=== PATIENT | female | born 1955 | race Caucasian/White ===

== ENCOUNTER 2016-12-17 14:58 | Inpatient (IN) | payer OTHER ==
[~2016-12-17] VITALS: Ht 142.2 cm; Wt 62.7 kg
[2016-12-17] MEDS ORDERED: IV NORMAL SALINE 500 ML BAG IV ONE (15:15)
[2016-12-17] MEDS ORDERED: ONDANSETRON 4 MG/2 ML VIAL IV ONE (15:15)
[2016-12-17] MEDS ORDERED: ONDANSETRON 4 MG/2 ML VIAL ONE (15:24)
[2016-12-17 15:37] LABS: BASOPHILS % (AUTO) 0.3 % (0.0-2.0); EOSINOPHILS # (AUTO) 0.1 K/uL (0.0-0.7); EOSINOPHILS % (AUTO) 0.4 % (0.0-7.0); HEMOGLOBIN 14.3 G/DL (12.0-16.0); LYMPHOCYTES # (AUTO) 1.9 K/UL (0.8-4.8); LYMPHOCYTES % (AUTO) 13.8 % (20.5-51.5); MEAN CORPUSCULAR HEMOGLOBIN 30.2 UUG (27.0-31.0); MEAN CORPUSCULAR HGB CONC 34 g/dL (32.0-37.0); MEAN CORPUSCULAR VOLUME 88.8 FL (81.0-99.0); MONOCYTES % (AUTO) 7.1 % (0.0-11.0); NEUTROPHILS # (AUTO) 10.6 K/UL (1.8-8.9); NEUTROPHILS % (AUTO) 78.4 % (38.5-71.5); PLATELET COUNT (AUTO) 220 K/UL (150-450); RED BLOOD CELL COUNT(AUTO) 4.73 MIL/UL (4.2-5.4); WHITE BLOOD COUNT (AUTO) 13.6 K/UL (4.0-11.2)
[2016-12-17 15:42] LABS: POTASSIUM 3.4 mmol/L (3.5-5.1)
[2016-12-17 15:48] LABS: BILIRUBIN,DIRECT 0.3 mg/dL (0.0-0.2); BILIRUBIN,TOTAL 1.2 mg/dL (0.2-1.0); TOTAL PROTEIN, SERUM 8.6 g/dL (6.4-8.2)
[2016-12-17] MEDS ORDERED: PIPERACILLIN SODIUM/TAZOBACTAM 3.375 G in IV DEXTROSE 5% 50 ML IV ONE (17:30)
[2016-12-17] MEDS ORDERED: PIPERACILLIN SODIUM/TAZO 3.375 GM VIAL ONE (17:53)
--- NOTE | 2016-12-17 17:53 | NUR ---
REPORT GIVEN TO MARA VERMA AWARE OF PT'S CONDITION. WILL CONTINUE FURTHER PLAN OF CARE
[2016-12-17] MEDS ORDERED: IV NORMAL SALINE 1000 ML BAG IV ONE (18:00)
[2016-12-17] MEDS ORDERED: MORPHINE SULFATE 2 MG/1 ML DISP.SYRIN IV ONE (18:00)
[2016-12-17] MEDS ORDERED: MORPHINE SULFATE 4 MG/1 ML DISP.SYRIN ONE (18:08)
[2016-12-17 18:47] VITALS: BP 103/65
--- NOTE | 2016-12-17 19:24 | NUR ---
Patient received from the ER in safe condition. No s/s of distress noted. Farsi speaking, talked to son and gave me some information. Report given to LUCI Ortiz.
--- NOTE | 2016-12-17 19:30 | NUR ---
RECEIVED PT IN BED, AWAKE, COMFORTABLE. PT DENIES PAIN. V/S STABLE. NO S/S OF ACUTE DISTRESS. SAFETY OBSERVED. CALLED DOCTOR VINEET FOR ADMITTING ORDERS.
[2016-12-17 20:20] VITALS: BP 92/53
[2016-12-17] MEDS ORDERED: ACETAMINOPHEN 325 MG TABLET PO PRN (20:45)
[2016-12-17] MEDS ORDERED: Z GUARD REMEDY PASTE 57 GM TUBE TOP PRN (20:45)
[2016-12-17] MEDS ORDERED: ONDANSETRON 4 MG/2 ML VIAL IV PRN (20:45)
[2016-12-17] MEDS ORDERED: MORPHINE SULFATE 2 MG/1 ML DISP.SYRIN IV PRN (20:45)
[2016-12-17] MEDS ORDERED: ZOLPIDEM 5 MG TABLET PO PRN (20:45)
[2016-12-17] MEDS: IV D5 1/2 NS 1000 ML 1,000 ML IV PRN (20:55)
[2016-12-18] MEDS: PIPERACILLIN/TAZOBACTAM/D5W 3.375 G in PREMIXED 1 EACH IV SCH ×3 (02:02→18:27)
--- NOTE | 2016-12-18 06:20 | NUR ---
END OF SHIFT NOTES: PT ASLEEP INTERMITTENTLY THROUGHOUT SHIFT. V.S STABLE. NO S/S OF ACUTE DISTRESS. NO COMPLAINTS OF PAIN. AMBULATORY. PT NPO FOR PROCEDURE IN AM. IVF INFUSING. CALL LIGHT WITHIN REACH. SAFETY AND COMFORT MAINTAINED.
[2016-12-18 06:28] VITALS: BP 98/57
[2016-12-18 07:15] LABS: BILIRUBIN,TOTAL 1.8 mg/dL (0.2-1.0); CREATININE 0.8 mg/dL (0.6-1.3); MAGNESIUM 1.9 mg/dL (1.8-2.4); PHOSPHOROUS 2.9 mg/dL (2.5-4.9); POTASSIUM 3.4 mmol/L (3.5-5.1); TOTAL PROTEIN, SERUM 6.7 g/dL (6.4-8.2)
[2016-12-18 07:25] LABS: THYROID STIMULATING HORMONE 0.344 mIU/mL (0.358-3.740)
[2016-12-18 07:26] LABS: BASOPHILS % (AUTO) 0.4 % (0.0-2.0); EOSINOPHILS # (AUTO) 0.2 K/uL (0.0-0.7); EOSINOPHILS % (AUTO) 1.4 % (0.0-7.0); LYMPHOCYTES # (AUTO) 2.3 K/UL (0.8-4.8); LYMPHOCYTES % (AUTO) 19.4 % (20.5-51.5); MEAN CORPUSCULAR HEMOGLOBIN 31.3 UUG (27.0-31.0); MEAN CORPUSCULAR HGB CONC 35 g/dL (32.0-37.0); MEAN CORPUSCULAR VOLUME 89.4 FL (81.0-99.0); MONOCYTES # (AUTO) 1.2 K/UL (0.1-1.30); MONOCYTES % (AUTO) 9.6 % (0.0-11.0); NEUTROPHILS # (AUTO) 8.4 K/UL (1.8-8.9); NEUTROPHILS % (AUTO) 69.2 % (38.5-71.5); WHITE BLOOD COUNT (AUTO) 12.1 K/UL (4.0-11.2)
[2016-12-18 07:28] LABS: HEMOGLOBIN 11.6 G/DL (12.0-16.0); RED BLOOD CELL COUNT(AUTO) 3.72 MIL/UL (4.2-5.4)
[2016-12-18 07:29] LABS: HEMATOCRIT 33.3 % (37-47); PLATELET COUNT (AUTO) 169 K/UL (150-450)
[2016-12-18] MEDS ORDERED: POTASSIUM CHLORIDE 20 MEQ TAB.PRT.SR PO ONE (07:30)
[2016-12-18] MEDS ORDERED: BARIUM SULFATE 450 ML ORAL.SUSP ONE (09:10)
[2016-12-18] MEDS ORDERED: DIATR MEGLU/DIATRIZOATE SODIUM 30 ML SOLUTION ONE (09:22)
[2016-12-18] MEDS ORDERED: IOHEXOL 300MG/ML 100 ML INFUS..BTL ONE (09:29)
[2016-12-18] MEDS ORDERED: IV NORMAL SALINE 250 ML IV ONE (09:30)
--- NOTE | 2016-12-18 10:37 | NUR ---
PATIENT WAS TAKEN TO CT SCANT W/ CONTRAST ORDERED BY WENDY LOWRY. CONSENT SIGNED, PROCEDURE WAS EXPLAINED TO DAUGHTER. NO S/S OF DISTRESS NOTED. DENIED PAIN AT THE MOMENT, TWO BOWEL MOVEMENT IN THIS MORNING. WILL CONTINUE MONITORING.
[2016-12-18 12:02] VITALS: BP 98/54
[2016-12-18 15:33] VITALS: BP 97/45
--- NOTE | 2016-12-18 18:15 | NUR ---
PATIENT IN BED AWAKE DURING THE DAY. NO S/S OF DISTRESS NOTED. NO C/O OF PAIN. FAMILY MEMBERS CAME TO VISIT AND BROUGHT SOME COMFORT FOOD FOR THE PATIENT. GOOD APPETITE, NO N/V. SAFETY AND COMFORT PROVIDED DURING BY THE STAFF. WILL CONTINUE MONITORING.
[2016-12-18] MEDS: IV D5 1/2 NS 1000 ML 1,000 ML IV PRN (18:27)
[2016-12-18 19:00] VITALS: BP 90/50
--- NOTE | 2016-12-18 20:00 | NUR ---
RECEIVED PATIENT AWAKE IN BED. A/O X4. FARSI SPEAKING. ABLE TO MAKE NEEDS NEEDS KNOWN. IVF INFUSING WELL. VSS. C/O MILD DISCOMFORT IN ABDOMEN. NO RESP. DISTRESS NOTED. CALL LIGHT IN REACH. ALL NEEDS ATTENDED. WILL CONTINUE TO MONITOR.
--- NOTE | 2016-12-18 20:45 | NUR ---
PATIENT C/O PAIN IN ABDOMEN. PATIENT GIVEN MORPHINE 2MG IV AND ZOFRAN 4MG IV PRN PER BODY SHOP SUPERVISOR. ALL NEEDS ATTENDED. WILL CONTINUE TO MONITOR.
--- NOTE | 2016-12-18 22:00 | NUR ---
PATIENT ASLEEP. NO S/S OF PAIN OR DISCOMFORT. NO RESP. DISTRESS NOTED. CALL LIGHT IN REACH. ALL NEEDS ATTENDED.
[2016-12-19] MEDS: PIPERACILLIN/TAZOBACTAM/D5W 3.375 G in PREMIXED 1 EACH IV SCH ×2 (01:50→09:01)
[2016-12-19 04:00] VITALS: BP 90/44
--- NOTE | 2016-12-19 06:34 | NUR ---
PATIENT AWAKE IN BED. SLEPT WELL THROUGHOUT THE NIGHT. IVF INFUSING WELL. DENIES PAIN OR DISCOMFORT. ALL NEEDS ATTENDED. WILL CONTINUE TO MONITOR .
[2016-12-19 09:29] VITALS: BP 96/70
[2016-12-19 11:36] VITALS: BP 100/64
[2016-12-19] MEDS ORDERED: LEVO500T15 PO (12:03)
[2016-12-19 15:12] VITALS: BP 111/51
--- NOTE | 2016-12-19 17:00 | NUR ---
Discharge instructions given to pt with floor renovator #[id number] Ju[place]o. Pt alert and oriented x 4. Instructed pt to f/u with PMD within 1 week and continue ABX, e-prescribed by DR BALDERAS to her pharmacy [facility] [id number] [phone], for 5 more days. Pt verbalized understanding. Pt is to f/u with her PMD re: vaccinations for PNM - pt would rather receive her pnm vaccine somewhere else and not sure if she already had it or not - pt verbalized understanding. Awaiting for SON to apple picker patient. 1730 Pt in a hurry to leave and refused to have education re abx that was prescribed. IV d/c no infiltration noted. Pt d/c with son ambulated to their car. Pt and son verbalized understanding of d/c instructions.
== END 2016-12-19 18:00 | disposition home or self-care (01) | DRG 247 ==
LOC: ER 15:01 → MED 18:35
PROVIDERS: ADMIT Nurse Practitioner Acute Care; ATTEND Nurse Practitioner Acute Care
DX: K31.5 Obstruction of duodenum (principal); A04.9 Bacterial intestinal infection, unspecified; E86.0 Dehydration; E80.6 Other disorders of bilirubin metabolism; K44.0 Diaphragmatic hernia with obstruction, without gangrene
CPT/HCPCS: 36415; 70030-TC; 74000; 83605; 83690; 83735; 84100; 84443; 85025; 85730; 87040; 93005; J2270; J2405; J2543; J3490; J7030; J7040; J7050; Q9951; Q9963; Q9967

== ENCOUNTER 2018-01-28 15:02 | Emergency (ER) | payer OTHER ==
[~2018-01-28] VITALS: Ht 160 cm; Wt 81.6 kg
[~2018-01-28 15:02] MED LIST: LEVO500T2 PO
--- NOTE | 2018-01-28 15:55 | NUR ---
pending MD evaluation, MOISE
--- NOTE | 2018-01-28 16:17 | NUR ---
Dr Villasenor is at bedside
--- NOTE | 2018-01-28 16:23 | NUR ---
Patient refused any diagnostic tests, MD aware
--- NOTE | 2018-01-28 16:25 | NUR ---
Patient discharged to home in stable conditon. Written and verbal after care instructions given to patient and to patient's adult daughter (Sinhala-speaking). Patient and family verbalized understanding of instructions.
== END 2018-01-28 16:26 | disposition home or self-care (01) ==
LOC: ER 15:04
DX: M79.1 Myalgia (principal); Z79.2 Long term (current) use of antibiotics
CPT/HCPCS: A4663

== ENCOUNTER 2019-02-28 21:11 | Emergency (ER) | payer OTHER ==
[~2019-02-28] VITALS: Ht 160 cm; Wt 81.6 kg
--- NOTE | 2019-02-28 21:37 | NUR ---
Patient is AOx4, speaking in complete sentences, speech is clear. Able to follow /comprehend directions. Gait is stable. No cardiovascular distress noted. Rate/rhythm regular. No CP. No respiratory distress noted. Respirations even , unlabored, symmetrical chest rise. No adventitious sounds noted. Chief complaint: Pt received c/o n/v and abd pain x 2days.pt denies diarrhea, able to eat or drink.Bowel sounds present and normoactive in all four quadrants. -distention, tender upon palpation. Denies Fever/Chills. No recent travel. No pertinent medical history/NKDA. - ETOH / -recreational drug use/ nonsmoker. reports Continent of bowel and bladder function. SAFETY Patient in bed, bed in lowest position. Siderails up x 2. Call light within reach. Will continue to monitor accordingly
[2019-02-28] MEDS ORDERED: MORPHINE SULFATE 2 MG/1 ML DISP.SYRIN IV ONE ×2 (21:45→23:30)
[2019-02-28] MEDS ORDERED: IV NORMAL SALINE 1000 ML BAG IV ONE (21:45)
[2019-02-28] MEDS ORDERED: ONDANSETRON 4 MG/2 ML VIAL IV ONE (21:45)
[2019-02-28] MEDS ORDERED: ONDANSETRON 4 MG/2 ML VIAL ONE (21:52)
[2019-02-28] MEDS ORDERED: MORPHINE SULFATE 2 MG/1 ML DISP.SYRIN ONE (21:52)
[2019-02-28 21:53] LABS: BASOPHILS # (AUTO) 0.1 K/uL (0.0-8.0); EOSINOPHILS # (AUTO) 0.5 K/uL (0.0-0.7); EOSINOPHILS % (AUTO) 8.4 % (0.0-7.0); HEMATOCRIT 33.1 % (31.2-41.9); HEMOGLOBIN 11.3 g/dL (10.9-14.3); LYMPHOCYTES # (AUTO) 2.5 K/uL (20.0-40.0); LYMPHOCYTES % (AUTO) 45.3 % (20.5-51.5); MEAN CORPUSCULAR HEMOGLOBIN 31.5 uug (24.7-32.8); MEAN CORPUSCULAR HGB CONC 34 g/dL (32.3-35.6); MEAN CORPUSCULAR VOLUME 92.2 fL (75.5-95.3); MONOCYTES # (AUTO) 0.5 K/uL (2.0-10.0); MONOCYTES % (AUTO) 8.9 % (0.0-11.0); NEUTROPHILS % (AUTO) 36.4 % (38.5-71.5); PLATELET COUNT (AUTO) 156 K/uL (179-408); RED BLOOD CELL COUNT(AUTO) 3.59 MIL/uL (3.63-4.92); WHITE BLOOD COUNT (AUTO) 5.5 K/uL (3.8-11.8)
[2019-02-28 22:00] LABS: CREATININE 0.7 mg/dL (0.6-1.3); POTASSIUM 4.2 mmol/L (3.5-5.1)
--- NOTE | 2019-02-28 22:00 | NUR ---
came back from ct via karen accompanied by mother and bruno. NAD
[2019-02-28 22:06] LABS: BILIRUBIN,DIRECT 0.2 mg/dL (0.0-0.2); BILIRUBIN,TOTAL 0.3 mg/dL (0.2-1.0); TOTAL PROTEIN, SERUM 7.3 g/dL (6.4-8.2)
--- NOTE | 2019-02-28 23:21 | NUR ---
ADMINISTERED MORPHINE 2MG ORDERED. WASTED 2MG OUR OF 4MG. ABLE TO TOLERATE. PT MOISE SPAIN RN COSIGNED
--- NOTE | 2019-02-28 23:22 | NUR ---
WITNESS WASTE OF MORPHINE 2MG OUT OF 4MG. 2MG GIVEN TOTAL AND 2MG WASTED TOTAL.
[2019-02-28] MEDS ORDERED: MORPHINE SULFATE 4 MG/1 ML DISP.SYRIN ONE (23:26)
--- NOTE | 2019-03-01 00:43 | NUR ---
MD UPDATED Patient discharged to home in stable conditon. Written and verbal after care instructions given. Patient verbalizes understanding of instructions.
[2019-03-01 00:54] VITALS: BP 111/80
== END 2019-03-01 00:55 | disposition home or self-care (01) ==
LOC: ER 21:13
DX: K56.7 Ileus, unspecified (principal)
CPT/HCPCS: 36415; 74176; 76705; 80048; 80076; 83605; 83690; 85025; 93005; 96374; 96375; 96376; 99284; J2270 ×2; J2405; A4663; J7030

== ENCOUNTER 2019-03-14 18:47 | Emergency (ER) | payer OTHER ==
[~2019-03-14] VITALS: Ht 160 cm; Wt 65.8 kg
--- NOTE | 2019-03-14 20:27 | NUR ---
Patient discharged to home in stable conditon. Written and verbal after care instructions given. Patient verbalizes understanding of instructions. Pt walked out of ER in stable gait, accompanied by 2 family members. Pt appears in no apparent distress. Vital signs stable. Respirations even + unlabored.
[2019-03-14 20:31] VITALS: BP 138/72
== END 2019-03-14 20:32 | disposition home or self-care (01) ==
LOC: ER 18:47
DX: J02.9 Acute pharyngitis, unspecified (principal); J45.909 Unspecified asthma, uncomplicated
CPT/HCPCS: A4663

== ENCOUNTER 2019-07-24 14:05 | Emergency (ER) | payer OTHER ==
[~2019-07-24] VITALS: Ht 160 cm; Wt 63.5 kg
[2019-07-24] MEDS ORDERED: ACETAMINOPHEN ES 500 MG TABLET PO ONE (14:30)
[2019-07-24] MEDS ORDERED: ACETAMINOPHEN ES 500 MG TABLET ONE (14:32)
--- NOTE | 2019-07-24 14:43 | NUR ---
Patient discharged to home in stable conditon. Written and verbal after care instructions given. Patient verbalizes understanding of instructions. Patient ambulated with stable gait.
[2019-07-24 14:44] VITALS: BP 119/63
== END 2019-07-24 14:44 | disposition home or self-care (01) ==
LOC: ER 14:06
DX: J06.9 Acute upper respiratory infection, unspecified (principal); J45.909 Unspecified asthma, uncomplicated
CPT/HCPCS: A4663; A9150

== ENCOUNTER 2019-07-29 13:29 | Emergency (ER) | payer OTHER ==
[~2019-07-29] VITALS: Ht 160 cm; Wt 63.5 kg
--- NOTE | 2019-07-29 14:10 | NUR ---
ERMD AT BEDSIDE FOR MSE
[2019-07-29] MEDS ORDERED: IV NORMAL SALINE 1000 ML BAG IV ONE (14:15)
[2019-07-29] MEDS ORDERED: ONDANSETRON 4 MG/2 ML VIAL IV ONE (14:15)
[2019-07-29] MEDS ORDERED: HYDROMORPHONE 1 MG/1 ML DISP.SYRIN IV ONE (14:15)
[2019-07-29] MEDS ORDERED: HYDROMORPHONE 1 MG/1 ML DISP.SYRIN ONE (14:24)
[2019-07-29] MEDS ORDERED: ONDANSETRON 4 MG/2 ML VIAL ONE (14:24)
[2019-07-29 14:28] LABS: BASOPHILS % (AUTO) 0.7 % (0.0-2.0); EOSINOPHILS # (AUTO) 0.5 K/uL (0.0-0.7); EOSINOPHILS % (AUTO) 9.1 % (0.0-7.0); HEMATOCRIT 34.9 % (31.2-41.9); HEMOGLOBIN 11.5 g/dL (10.9-14.3); LYMPHOCYTES # (AUTO) 2.9 K/uL (20.0-40.0); LYMPHOCYTES % (AUTO) 55.1 % (20.5-51.5); MEAN CORPUSCULAR HGB CONC 33 g/dL (32.3-35.6); MEAN CORPUSCULAR VOLUME 93.9 fL (75.5-95.3); MONOCYTES # (AUTO) 0.4 K/uL (2.0-10.0); NEUTROPHILS # (AUTO) 1.5 K/uL (1.8-8.9); NEUTROPHILS % (AUTO) 28.1 % (38.5-71.5); PLATELET COUNT (AUTO) 138 K/uL (179-408); RED BLOOD CELL COUNT(AUTO) 3.71 MIL/uL (3.63-4.92); WHITE BLOOD COUNT (AUTO) 5.2 K/uL (3.8-11.8)
[2019-07-29] MEDS ORDERED: METOCLOPRAMIDE HCL 10 MG/2 ML VIAL ONE (14:40)
[2019-07-29 14:41] LABS: BILIRUBIN,DIRECT 0.1 mg/dL (0.0-0.2); BILIRUBIN,TOTAL 0.3 mg/dL (0.2-1.0); CREATININE 0.7 mg/dL (0.6-1.3); POTASSIUM 4.3 mmol/L (3.5-5.1); TOTAL PROTEIN, SERUM 7.2 g/dL (6.4-8.2)
[2019-07-29 16:34] LABS: *BILIRUBIN,URIN NEGATIVE (NEGATIVE); *BLOOD, URINE NEGATIVE (NEGATIVE); *COLOR,URINE YELLOW (YELLOW); *KETONES,URINE NEGATIVE (NEGATIVE); *UROBILINOGEN,URINE 0.2 E.U./dl (NORMAL); LEUKOCYTE ESTERASE ,URINE NEGATIVE (NEGATIVE); NITRITE, URINE NEGATIVE (NEGATIVE); PH,URINE 5.5 (5.0-8.0); UGLUCOSE NEGATIVE (NEGATIVE)
[2019-07-29 16:38] LABS: *CLARITY,URINE SLIGHTLY HAZY (CLEAR)
[2019-07-29 16:39] LABS: BACTERIA,URINE FEW /HPF (NONE SEEN); MUCUS,URINE MANY /LPF (0-FEW); SQUAMOUS EPITHELIAL CELL,UR MODERATE /HPF (NONE SEEN); WBC,URINE 0-3 /HPF (0-3)
[2019-07-29 17:18] VITALS: BP 119/45
--- NOTE | 2019-07-29 17:18 | NUR ---
Patient discharged to home in stable conditon. Written and verbal after care instructions given. Patient verbalizes understanding of instructions. Patient ambulated with stable gait. Instructed patient that she may not drive. IV removed. Catheter intact and site benign. Pressure and 4x4 gauze applied to site. No bleeding noted.
== END 2019-07-29 17:18 | disposition home or self-care (01) ==
LOC: ER 13:34
DX: K52.9 Noninfective gastroenteritis and colitis, unspecified (principal); J45.909 Unspecified asthma, uncomplicated; F41.9 Anxiety disorder, unspecified
CPT/HCPCS: 36415; 80048; 80076; 81000; 81001; 83690; 84484; 85025; 85730; 87086; 93005; 96361; 96374; 96375; 99284; J1170; J2405; 70030-TC; A4663; J2765; J7030

== ENCOUNTER 2019-09-26 10:32 | Emergency (ER) | payer OTHER ==
[~2019-09-26] VITALS: Ht 157.5 cm; Wt 77.1 kg
--- NOTE | 2019-09-26 10:37 | NUR ---
PT AOX3, ABLE TO SPEAK CLEAR AND COMPLETE SENTENCES C/O COUGH, SORETHROAT, HEADACHE AND FEVERISH SINCE YESTERDAY AMBULATORY DENIES NVD, SOB DENIES RECENT TRAVELS DENIES TRAUMA NOR SURGERY TO SITE MONITORED ACCORDINGLY BED AT LOWEST POSITION SIDERAILSX2 UP
[2019-09-26 11:05] LABS: BASOPHILS # (AUTO) 0.1 K/uL (0.0-8.0); BASOPHILS % (AUTO) 1.2 % (0.0-2.0); EOSINOPHILS # (AUTO) 0.4 K/uL (0.0-0.7); EOSINOPHILS % (AUTO) 5.6 % (0.0-7.0); HEMATOCRIT 33.5 % (31.2-41.9); HEMOGLOBIN 11.3 g/dL (10.9-14.3); LYMPHOCYTES # (AUTO) 2.4 K/uL (20.0-40.0); LYMPHOCYTES % (AUTO) 36.8 % (20.5-51.5); MEAN CORPUSCULAR HEMOGLOBIN 31.6 uug (24.7-32.8); MEAN CORPUSCULAR HGB CONC 34 g/dL (32.3-35.6); MEAN CORPUSCULAR VOLUME 93.5 fL (75.5-95.3); MONOCYTES # (AUTO) 0.5 K/uL (2.0-10.0); NEUTROPHILS # (AUTO) 3.1 K/uL (1.8-8.9); NEUTROPHILS % (AUTO) 48.4 % (38.5-71.5); PLATELET COUNT (AUTO) 153 K/uL (179-408); RED BLOOD CELL COUNT(AUTO) 3.59 MIL/uL (3.63-4.92); WHITE BLOOD COUNT (AUTO) 6.5 K/uL (3.8-11.8)
[2019-09-26 11:11] LABS: CREATININE 0.5 mg/dL (0.6-1.3); POTASSIUM 3.8 mmol/L (3.5-5.1)
[2019-09-26] MEDS ORDERED: IPRATROPIUM BROMIDE 0.5 MG/2.5 ML NEBU NEB ONE (11:15)
[2019-09-26] MEDS ORDERED: ALBUTEROL SULFATE 2.5 MG/3 ML NEBU NEB ONE (11:15)
[2019-09-26] MEDS ORDERED: IPRATROPIUM BROMIDE 0.5 MG/2.5 ML NEBU ONE (11:22)
[2019-09-26] MEDS ORDERED: ALBUTEROL SULFATE 2.5 MG/ 0.5 ML NEBU ONE (11:22)
[2019-09-26] MEDS ORDERED: ALBUTEROL SULFATE 2.5 MG/3 ML NEBU ONE (11:22)
[2019-09-26 11:23] LABS: BILIRUBIN,DIRECT 0.2 mg/dL (0.0-0.2); BILIRUBIN,TOTAL 0.9 mg/dL (0.2-1.0)
--- NOTE | 2019-09-26 11:24 | NUR ---
RT AT BEDSIDE FOR BREATHING TREATMENT
--- NOTE | 2019-09-26 12:00 | NUR ---
PT ABLE TO TOLERATE BREATHING TREATMENT AND STATES SIGNIFICANT RELIEF O2SAT AT 97% RA
[2019-09-26] MEDS ORDERED: predniSONE 10 MG TABLET ONE (12:14)
[2019-09-26] MEDS ORDERED: predniSONE 50 MG TABLET ONE (12:14)
[2019-09-26] MEDS ORDERED: predniSONE 20 MG TABLET PO ONE (12:15)
--- NOTE | 2019-09-26 12:22 | NUR ---
PT ABLE TO TOLERATE SIP OF WATER PT ABLE TO TOLERATE PO MEDS ORDERED PT ABLE TO TOLERATE CRACKERS AND JUICE
--- NOTE | 2019-09-26 12:54 | NUR ---
MD AT BEDSIDE FOR UPDATE
--- NOTE | 2019-09-26 12:55 | NUR ---
Patient discharged to home in stable conditon. Written and verbal after care instructions given. Patient verbalizes understanding of instructions. AMBULATORY W/ STABLE GAIT ALL BELONGINGS W/ PT SON WILL DRIVE HER HOME
[2019-09-26 13:09] VITALS: BP 125/78
== END 2019-09-26 13:10 | disposition home or self-care (01) ==
LOC: ER 10:32
DX: J22 Unspecified acute lower respiratory infection (principal); J45.909 Unspecified asthma, uncomplicated
CPT/HCPCS: 36415; 71045; 80048; 80076; 83880; 85025; 87400; 93005; 94640; 99285; J7512 ×2; A4663; J3590